=== PATIENT | female | born 1970 | race Caucasian/White ===

== ENCOUNTER → 2021-08-26 09:18 | Outpatient (CLI) | payer OTHER, MEDICAID, SELFPAY ==
[2021-08-26 19:28] LABS: HEMOLYSIS < 15 (0-50); Iron 76 ug/dL (37-170)
[2021-08-26 19:38] LABS: Percent Iron Saturation 20 % (15-50); Total Iron Binding Capacity 377 ug/dL (265-497); Transferrin 319 mg/dL (206-381)
[2021-08-26 19:58] LABS: Ferritin 63 ng/mL (11-264)
== END ==
PROVIDERS: PCP Physician Assistant; Visit Provider Physician Assistant
DX: G43.909 Migraine, unspecified, not intractable, without status migrainosus (principal); D64.9 Anemia, unspecified
CPT/HCPCS: 82728; 83540; 83550

== ENCOUNTER → 2021-08-27 08:08 | Outpatient (CLI) | payer OTHER, MEDICAID, SELFPAY ==
[2021-08-27 19:09] LABS: Alanine Aminotransferase 29 IU/L (<35); Albumin 4.5 g/dL (3.5-5.0); Albumin Globulin Ratio 1.3 (1.0-2.8); Alkaline Phosphatase 70 U/L (38-126); Aspartate Aminotransferase 31 IU/L (14-36); Bilirubin Total 0.5 mg/dL (0.2-1.3); Blood Urea Nitrogen 14 mg/dL (7-17); Calcium 9.3 mg/dL (8.4-10.2); Carbon Dioxide 31 mmol/L (22-32); Chloride 104 mmol/L (98-107); Cholesterol 242 mg/dL (140-199); Estimated Glomerular Filt Rate > 60.0 mL/min (>60); Globulin 3.5 g/dL (1.7-4.1); Glucose 113 mg/dL (70-100); HDL Cholesterol 66 mg/dL (40-60); HEMOLYSIS < 15 (0-50); LDL Cholesterol Calculated 134 mg/dL (<100); Potassium 4.4 mmol/L (3.4-5.1); Sodium 137 mmol/L (137-145); Triglycerides 212 mg/dL (35-150)
[2021-08-27 19:21] LABS: Add Manual Diff / Slide Review NO; Basophils Absolute Auto 100 /uL (0-100); Basophils Percent Auto 1.1 % (0-2); Eosinophils Absolute Auto 200 /uL (0-450); Eosinophils Percent Auto 3.8 % (2-4); Hematocrit 42.4 % (36-46); Hemoglobin 14.1 g/dL (12.0-16.0); Lymphocytes Absolute Auto 1800 /uL (1100-4500); Lymphocytes Percent Auto 28.9 % (25-40); Mean Corpuscular HGB Conc 33.2 % (30-36); Mean Corpuscular Hemoglobin 30.1 PG (26-34); Mean Corpuscular Volume 90.4 fL (80-100); Monocytes Absolute Auto 400 /uL (0-900); Monocytes Percent Auto 6.9 % (3-14); Neutrophils Absolute Auto 3800 /uL (1500-7000); Neutrophils Percent Auto 59.3 % (50-75); Platelet Count 427 X10^3/uL (150-400); Red Blood Cell Count 4.69 X10^6/uL (4.0-5.2); Red Cell Distribution Width 13.6 % (11.6-14.8); White Blood Cell Count 6.4 X10^3/uL (4.5-11.0)
[2021-08-27 19:32] LABS: TSH w/ Reflex to FT4 0.99 uIU/mL (0.47-4.68)
== END ==
PROVIDERS: PCP Physician Assistant; Visit Provider Physician Assistant
DX: E78.00 Pure hypercholesterolemia, unspecified (principal); R63.5 Abnormal weight gain; N95.0 Postmenopausal bleeding
CPT/HCPCS: 80053; 80061; 84443; 85025

== ENCOUNTER → 2021-10-12 08:48 | Outpatient (CLI) | payer OTHER, MEDICAID, SELFPAY ==
--- NOTE | 2021-10-12 08:51 | DI.MG.S_ITS ---
BILATERAL DIGITAL SCREENING MAMMOGRAM 3D/2D WITH CAD: 10/12/2021 CLINICAL: Routine screening. Family history of breast cancer. Comparison is made to exams dated: 03/11/2020 mammogram and 03/13/2019 mammogram - outside location. The tissue of both breasts is heterogeneously dense. This may lower the sensitivity of mammography. Current study was also evaluated with a Computer Aided Detection (CAD) system. There is a new 0.8 cm oval equal density focal asymmetry in the left breast at 10 o'clock middle depth. No other significant masses, calcifications, or other findings are seen in either breast. IMPRESSION: INCOMPLETE: NEEDS ADDITIONAL IMAGING EVALUATION The new 0.8 cm oval equal density focal asymmetry in the left breast resembles a cyst or a lymph node and is indeterminate. Additional views with possible ultrasound are recommended. This exam was interpreted at Station ID: [id number]. NOTE: For mammograms, a report in lay terms will be sent to the patient. Approximately 15% of breast malignancies will not be visualized mammographically. In the management of a palpable breast mass, a negative mammogram must not discourage biopsy of a clinically suspicious lesion. Electronically Signed By: Tristan Hidalgo M.D. aty/:10/12/2021 11:13:13 letter sent: Additional Imaging Needed ACR BI-RADS Category 0: Incomplete 3340F
--- NOTE | 2021-10-12 08:51 | DI.US.S_ITS ---
PROCEDURE: US PELVIC COMPLETE INDICATIONS: abnormal vaginal bleeding TECHNIQUE: Real-time scanning was performed of the pelvic organs, with image documentation. Additional endovaginal scanning was necessary due to incomplete visualization of the adnexal and endometrial structures by transabdominal scanning. COMPARISON: None. FINDINGS: Uterus: Uterus is anteverted and measures 6.1 x 2.7 x 3.4 cm. The endometrium approximately 0.2 cm. There is an ill-defined hypoechoic region adjacent to the endometrium measuring approximately 0.9 x 0.7 x 0.7 cm which may represent a small fibroid. There is a small nabothian cyst as well as a small amount of endocervical fluid. Ovaries: The right ovary measures 2.5 x 1.1 x 1.8 cm. The left ovary measures 2.2 x 0.8 x 0.9 cm. The ovaries have a normal sonographic appearance. Less than 12 follicles can be seen in each ovary. No adnexal masses are seen. Other: No pathologic free abdominal or pelvic fluid. IMPRESSION: 1. Ill-defined hypoechoic oval region adjacent to the endometrium is nonspecific and the differential includes a small fibroid or adenomyosis. If clinical concern persists, consider further evaluation with a pelvic MRI. We strive to produce accurate, complete, and clear reports of imaging services. To assist us in improving patient care, this report was composed using standard report templates and voice recognition software. Therefore, it may contain abnormal punctuation, insertions and/or omissions. Occasional wrong-word or sound-alike substitutions may occur. Though we review the report and make efforts to correct it, we do recommend that the report be read carefully in proper context to recognize any text inaccuracies. Dictated by: Terrell Vicente M.D. on 10/12/2021 at 16:48 Approved by: Terrell Vicente M.D. on 10/12/2021 at 16:53
== END ==
PROVIDERS: PCP Physician Assistant; Referring Provider Physician Assistant; Visit Provider Physician Assistant
DX: N95.0 Postmenopausal bleeding (principal); N84.1 Polyp of cervix uteri; Z12.31 Encounter for screening mammogram for malignant neoplasm of breast; Z80.3 Family history of malignant neoplasm of breast
CPT/HCPCS: 76830; 76856; 77063; 77067

== ENCOUNTER 2021-12-07 12:24 | Day surgery (SDC) | payer OTHER, MEDICAID, SELFPAY ==
[2021-12-03 13:40] VITALS: BMI 31.1
[2021-12-07] VITALS (7 sets, daily range): BP systolic 128–165; BP diastolic 84–108; PULSE 68–85; RESP 15–22; TEMP 36.2–36.9; O2SAT 97–99; BMI 31.1
--- NOTE | 2021-12-07 | PATH_ITS ---
[facility] Accession Number: [id number] . 01 Material submitted: . endometrium - ENDOMETRIAL . 01 Diagnosis: Endometrial: Portions of disordered proliferative endometrial tissue with patchy features of breakdown and shedding; negative for glandular hyperplasia, cytologic atypia, or malignancy. Fragments of endocervical polyp; negative for glandular dysplasia or malignancy. Background pleomorphic calcifications and acellular amorphous foreign body material, nonspecific. MRV 12/10/2021 1332 Local . 01 Electronically signed: . Merly Vargas MD, Pathologist NPI- [id number] . 01 Gross description: . ENDOMETRIAL: Received in formalin are minute fragments of mucoid and hemorrhagic material measuring 1.8 x 1.0 x 0.2 cm in aggregate. Submitted in toto in 1 cassette. /CPE 12/08/2021 0525 Local . 01 Pathologist provided ICD-10: N95.0 . 01 CPT . 670545 Specimen Comment: A courtesy copy of this report has been sent to [phone] Performed at: 01 [facility] [address] [place] [address], [place], [place] [id number] MD Terrell Muhammad MD Phone: [phone]
--- NOTE | 2021-12-07 12:20 | SUR.PREOP ---
pt chart stated 12noon arrival. patient called at 12:20pm to verify patient is coming for procedure. Pt on way in. Stated her expected time was to be here at 1230pm.
[2021-12-07] MEDS: LACTATED RINGERS 1,000 ML 84 ML IV (12:57)
--- NOTE | 2021-12-07 13:07 | PM.PREOP ---
Pre-operative Note COVID-19 COVID-19 status: Negative Result date/Date tested (Pos, Neg/Pending): 12/07/21 Criteria for continued procedure: Expected advancement of disease process Interval Note History & Physical reviewed/Exam performed by Physician: Yes Changes to H&P: No
--- NOTE | 2021-12-07 14:15 | PM.OP.1 ---
Operative Date/Time/Diagnoses Date of procedure: 12/07/21 Time of procedure: 14:15 Pre-op diagnosis: Abnormal uterine bleeding Post-op diagnosis: same Procedure & Clinicians Procedure: Hysteroscopy with resection of endometrial and endocervical polyp with endometrial curettage Same procedure as scheduled: Yes Indications: Abnormal uterine bleeding Surgeon: Sarah Cortes Click Yes if Unassisted: Yes Anesthesia Type: General Operative Notes Findings: Endometrial and endocervical polyp otherwise normal exam under anesthesia and endometrial lining otherwise thin Closure Type: not applicable Specimen(s): other (Endometrial biopsies including the cervical polyp, endometrial polyp, and endometrial curettage) Estimated Blood Loss (mL): 1 Blood products transfused: none Procedure in detail: The patient was brought to the operating room where she underwent general anesthesia. She was placed in low stirrups She was prepped and draped in usual sterile fashion with pulsatile stockings in place and functional, warming in place, no antibiotics were indicated. A single-tooth tenaculum was placed on the anterior lip of the cervix and the uterus dilated to #8 Hegar dilator. The hysteroscope was placed into the uterus with a sorbitol solution running and under constant suction. The resecting loop set at 80 W of cutting was used to resect the endocervical and endometrial polyps down to the level of the endometrium. A endometrial curettage was performed. The polyps and the endometrial curettage were sent to pathology. The patient went to recovery room in good condition. Counts of instruments and sponges were correct. The sorbitol solution I=O approximately 1500 mL. Complications: none Post-operative Condition: stable Disposition: same day surgery Plan for aftercare: Home when awake and stable
--- NOTE | 2021-12-07 14:20 | SUR.OPER ---
Lithotomy on padded OR bed, head on pillow, arms secured on padded arm boards at <90 degrees abduction. Legs secured in padded yellow fins stirrups.
[2021-12-07] MEDS: fentaNYL 100 MCG/2 ML INJ IV (14:35)
[2021-12-07] MEDS: OXYCODONE IR 5 MG TABLET PO (14:58)
--- NOTE | 2021-12-07 15:41 | SUR.PHASEII ---
12/07/[id number]-Cpscdlkr patient, wide awake and alert, no complaints of pain or nausea. Taking snack at present. States doing fine. new peripad placed in pacu. cande henderson obtained and faxed. 1515-home care instructions completed with patient . Stressed that anesthesia wanted her to go for sleep study, information starred/highlighted on instructions. Questions answered on home care. copies at bedside for patient. pain down 3/10. 1525-Vss. oob to restroom to use/dress. new peripad given. scant serrosanganous drainage on prior pad. 1535-iv out. Ride here. Discharged home to friend, Angeline's, car and care with all belongings, instructions and ramilay pass. pain down to 2/10. States much better.
== END 2021-12-07 15:35 | disposition home or self-care (01) ==
PROVIDERS: PCP Physician Assistant; Referring Provider Specialist; Visit Provider Specialist
PROC: 0UDB8ZZ Extraction of Endometrium, Via Natural or Artificial Opening Endoscopic (ICD-10-PCS; CPT 58558; principal; 2021-12-07 13:30)
DX: N84.1 Polyp of cervix uteri (principal); Z20.822 Contact with and (suspected) exposure to COVID-19; N93.9 Abnormal uterine and vaginal bleeding, unspecified
CPT/HCPCS: 58558; 81025; 87635; J1100; J1885; J2250; J2405; J2704; J3010

== ENCOUNTER → 2021-12-07 | Outpatient (CLI) | payer OTHER, MEDICAID, SELFPAY ==
[2021-12-07 11:32] LABS: COVID19 -Nasal RAPID Negative (Negative)
== END ==
PROVIDERS: PCP Physician Assistant; Visit Provider Specialist
DX: Z20.822 Contact with and (suspected) exposure to COVID-19 (principal)
CPT/HCPCS: 87635

== ENCOUNTER → 2021-12-16 11:42 | Outpatient (CLI) | payer OTHER, MEDICAID, SELFPAY ==
--- NOTE | 2021-12-16 | DI.MG.S_ITS ---
UNILATERAL LEFT DIGITAL DIAGNOSTIC MAMMOGRAM 3D/2D WITH ADDITIONAL VIEWS: 12/16/2021 CLINICAL: Additional evaluation requested from prior study. Comparison is made to exams dated: 10/12/2021 mammogram - [facility], 03/11/2020 mammogram, and 03/13/2019 mammogram - outside location. The tissue of left breast is heterogeneously dense. This may lower the sensitivity of mammography. There is a stable 0.8 cm oval equal density focal asymmetry in the left breast at 10 o'clock middle depth. This is seen in additional views. No other significant masses or calcifications are seen in the breast. IMPRESSION: INCOMPLETE: NEEDS ADDITIONAL IMAGING EVALUATION The stable 0.8 cm oval equal density focal asymmetry in the left breast resembles a cyst or a lymph node and is indeterminate. An ultrasound is recommended. US will be performed and dictated separately. Based on the Tyrer Cuzick model (a risk assessment model) the patient's lifetime risk is 13.8% and her 10 year risk is 3.4%. According to the ACR, ACS, and NCCN guidelines, an annual breast MRI exam along with mammogram is recommended if the patient's lifetime risk is 20% or greater. This exam was interpreted at Station ID: [id number]. NOTE: For mammograms, a report in lay terms will be sent to the patient. Approximately 15% of breast malignancies will not be visualized mammographically. In the management of a palpable breast mass, a negative mammogram must not discourage biopsy of a clinically suspicious lesion. Electronically Signed By: Rony Dumont acr/:12/16/2021 13:07:07 ACR BI-RADS Category 0: Incomplete 3340F
--- NOTE | 2021-12-16 11:44 | DI.US.S_ITS ---
LIMITED ULTRASOUND OF LEFT BREAST: 12/16/2021 CLINICAL: Patient returns today to evaluate a focal asymmetry in the left breast. No prior exams were available for comparison. Real-time ultrasound of the left breast 8-10 o'clock region was performed. Powers scale images of the real-time examination were reviewed. No abnormality which corresponds with the mammographic abnormality is seen. IMPRESSION: PROBABLY BENIGN There is no abnormality seen in the left breast to correspond with the mammography finding which likely represents normal fibroglandular tissue. A follow-up mammogram in 6 months is recommended to demonstrate stability. This exam was interpreted at Station ID: [id number]. Electronically Signed By: Rony Dumont acr/:12/16/2021 13:10:07 letter sent: Followup Recommended Ultrasound BI-RADS: 3 Probably benign
== END ==
PROVIDERS: PCP Physician Assistant; Referring Provider Physician Assistant; Visit Provider Physician Assistant
DX: R92.8 Other abnormal and inconclusive findings on diagnostic imaging of breast (principal); N63.24 Unspecified lump in the left breast, lower inner quadrant
CPT/HCPCS: 76642; 77065; G0279

== ENCOUNTER → 2022-03-17 10:44 | Outpatient (CLI) | payer OTHER, MEDICAID, SELFPAY ==
[2022-03-17 20:34] LABS: Cholesterol 236 mg/dL (140-199); HDL Cholesterol 64 mg/dL (40-60); LDL Cholesterol Calculated 124 mg/dL (<100); Triglycerides 241 mg/dL (35-150)
== END ==
PROVIDERS: PCP Physician Assistant; Visit Provider Physician Assistant
DX: E78.5 Hyperlipidemia, unspecified (principal)
CPT/HCPCS: 80061

== ENCOUNTER → 2022-06-25 09:36 | Outpatient (CLI) | payer OTHER, MEDICAID, SELFPAY ==
--- NOTE | 2022-06-25 09:37 | DI.MG.S_ITS ---
UNILATERAL LEFT DIGITAL DIAGNOSTIC MAMMOGRAM 3D/2D: 06/25/2022 CLINICAL: Short term follow up for the left breast. Comparison is made to exams dated: 12/16/2021 ultrasound, 12/16/2021 mammogram, and 10/12/2021 mammogram - [facility]. The left breast is heterogeneously dense, which may obscure small masses (category c / 51-75% glandular tissue). There is a 0.8 cm oval equal density focal asymmetry in the left breast at 10 o'clock middle depth. This is not significantly changed and was not seen on the prior ultrasound. No other significant masses or calcifications are seen in the breast. IMPRESSION: PROBABLY BENIGN The 0.8 cm oval equal density focal asymmetry in the left breast resembles a cyst or a lymph node and is probably benign. A follow-up bilateral mammogram in 6 months is recommended to demonstrate stability. Based on the Tyrer Cuzick model (a risk assessment model) the patient's lifetime risk is 13.7% and her 10 year risk is 3.6%. According to the ACR, ACS, and NCCN guidelines, an annual breast MRI exam along with mammogram is recommended if the patient's lifetime risk is 20% or greater. Findings and recommendations were conveyed to the patient during today's evaluation. This exam was interpreted at Station ID: [id number]. NOTE: For mammograms, a report in lay terms will be sent to the patient. Approximately 15% of breast malignancies will not be visualized mammographically. In the management of a palpable breast mass, a negative mammogram must not discourage biopsy of a clinically suspicious lesion. Electronically Signed By: Tristan Hidalgo M.D. at/:06/25/2022 14:16:12 letter sent: Followup Recommended ACR BI-RADS Category 3: Probably benign 3343F
== END ==
PROVIDERS: PCP Physician Assistant; Referring Provider Physician Assistant; Visit Provider Physician Assistant
DX: N64.89 Other specified disorders of breast (principal); R92.8 Other abnormal and inconclusive findings on diagnostic imaging of breast
CPT/HCPCS: 77065; G0279

== ENCOUNTER → 2022-07-21 09:00 | Outpatient (CLI) | payer OTHER, MEDICAID, SELFPAY ==
[2022-07-21 19:43] LABS: Add Manual Diff / Slide Review NO; Basophils Absolute Auto 0 /uL (0-100); Basophils Percent Auto 0.8 % (0-2); Eosinophils Absolute Auto 200 /uL (0-450); Eosinophils Percent Auto 3.9 % (2-4); Hematocrit 42.1 % (36-46); Hemoglobin 14.3 g/dL (12.0-16.0); Lymphocytes Absolute Auto 2100 /uL (1100-4500); Lymphocytes Percent Auto 36.8 % (25-40); Mean Corpuscular HGB Conc 33.8 % (30-36); Mean Corpuscular Hemoglobin 30.7 PG (26-34); Mean Corpuscular Volume 90.9 fL (80-100); Monocytes Absolute Auto 500 /uL (0-900); Monocytes Percent Auto 9.1 % (3-14); Neutrophils Absolute Auto 2800 /uL (1500-7000); Neutrophils Percent Auto 49.4 % (50-75); Platelet Count 389 X10^3/uL (150-400); Red Blood Cell Count 4.63 X10^6/uL (4.0-5.2); Red Cell Distribution Width 13.1 % (11.6-14.8); White Blood Cell Count 5.6 X10^3/uL (4.5-11.0)
[2022-07-21 20:20] LABS: Cholesterol 282 mg/dL (140-199); HDL Cholesterol 80 mg/dL (40-60); LDL Cholesterol Calculated 129 mg/dL (<100); Triglycerides 363 mg/dL (35-150)
== END ==
PROVIDERS: PCP Physician Assistant; Visit Provider Physician Assistant
DX: E78.5 Hyperlipidemia, unspecified (principal)
CPT/HCPCS: 80061; 85025

== ENCOUNTER → 2022-11-26 17:01 | Outpatient (CLI) | payer OTHER, SELFPAY ==
--- NOTE | 2022-11-26 17:02 | DI.US.S_ITS ---
PROCEDURE: US PELVIC COMPLETE INDICATIONS: HEAVY BLEEDING X 3 DAYS IN OCTOBER 2022 AFTER NO MENSES FOR SIX MONTHS. ?POSTMENOPAUSAL. TECHNIQUE: Real-time scanning was performed of the pelvic organs, with image documentation. Additional endovaginal scanning was necessary due to incomplete visualization of the adnexal and endometrial structures by transabdominal scanning. COMPARISON: Merged With [facility], US, US PELVIC COMPLETE, 10/12/2021, 13:10. FINDINGS: Uterus: Uterus is anteverted and normal in size at 6.9 x 3.7 x 2.7 cm. The myometrium is homogeneous. The endometrium measures 1.7 mm combined thickness. Again noted is a 7 x 7 x 9 mm hypoechoic structure within the endometrium. Ovaries: The right ovary measures 2.6 x 1.1 x 1.0 cm, with a calculated ovarian volume of 1.5 cc. The left ovary measures 2.4 x 1.1 x 1.4 cm, with a calculated ovarian volume of 1 point cc. The ovaries have a normal sonographic appearance. Less than 12 follicles can be seen in each ovary. No adnexal masses are seen. Other: No pathologic free abdominal or pelvic fluid. IMPRESSION: 1. A 7 x 7 x 9 mm hypoechoic structure within the endometrium, probably a small endometrial cyst. Consider nonurgent saline infusion sonohysterogram or gynecological MRI for follow-up evaluation. 2. Unremarkable ovaries. We strive to produce accurate, complete, and clear reports of imaging services. To assist us in improving patient care, this report was composed using standard report templates and voice recognition software. Therefore, it may contain abnormal punctuation, insertions and/or omissions. Occasional wrong-word or sound-alike substitutions may occur. Though we review the report and make efforts to correct it, we do recommend that the report be read carefully in proper context to recognize any text inaccuracies. Dictated by: Albania Green M.D. on 11/26/2022 at 18:20 Approved by: Albania Green M.D. on 11/26/2022 at 18:23
== END ==
PROVIDERS: PCP Physician Assistant; Referring Provider Physician Assistant; Visit Provider Physician Assistant
DX: N95.0 Postmenopausal bleeding (principal); Z98.890 Other specified postprocedural states
CPT/HCPCS: 76830; 76856

== ENCOUNTER → 2022-11-29 09:04 | Outpatient (CLI) | payer OTHER, SELFPAY ==
[2022-11-29 19:48] LABS: Alanine Aminotransferase 33 IU/L (<35); Albumin 4.1 g/dL (3.5-5.0); Albumin Globulin Ratio 1.2 (1.0-2.8); Alkaline Phosphatase 68 U/L (38-126); Aspartate Aminotransferase 32 IU/L (14-36); BUN Creatinine Ratio 15.5 (6-22); Bilirubin Total 0.6 mg/dL (0.2-1.3); Blood Urea Nitrogen 9 mg/dL (7-17); Carbon Dioxide 29 mmol/L (22-32); Chloride 100 mmol/L (98-107); Cholesterol 196 mg/dL (140-199); Estimated Glomerular Filt Rate > 60 mL/min (>60); Globulin 3.3 g/dL (1.7-4.1); Glucose 117 mg/dL (70-100); HDL Cholesterol 84 mg/dL (40-60); HEMOLYSIS < 15 (0-50); LDL Cholesterol Calculated 90 mg/dL (<100); Potassium 4.1 mmol/L (3.4-5.1); Sodium 135 mmol/L (137-145); Total Protein 7.4 g/dL (6.3-8.2); Triglycerides 111 mg/dL (35-150)
[2022-11-29 19:53] LABS: Basophils Absolute Auto 0 /uL (0-100); Basophils Percent Auto 0.4 % (0-2); Eosinophils Absolute Auto 200 /uL (0-450); Eosinophils Percent Auto 3.6 % (2-4); Hematocrit 39.6 % (36-46); Hemoglobin 13.5 g/dL (12.0-16.0); Lymphocytes Absolute Auto 2300 /uL (1100-4500); Lymphocytes Percent Auto 42.9 % (25-40); Mean Corpuscular Hemoglobin 30.9 PG (26-34); Mean Corpuscular Volume 90.9 fL (80-100); Monocytes Absolute Auto 400 /uL (0-900); Monocytes Percent Auto 7.3 % (3-14); Neutrophils Absolute Auto 2500 /uL (1500-7000); Neutrophils Percent Auto 45.8 % (50-75); Platelet Count 288 X10^3/uL (150-400); Red Blood Cell Count 4.35 X10^6/uL (4.0-5.2); Red Cell Distribution Width 13.3 % (11.6-14.8); White Blood Cell Count 5.4 X10^3/uL (4.5-11.0)
[2022-11-29 19:54] LABS: Add Manual Diff / Slide Review SLIDE REVIEW
[2022-11-29 20:32] LABS: RBC Morphology Normal Morphology
== END ==
PROVIDERS: PCP Physician Assistant; Visit Provider Physician Assistant
DX: E78.5 Hyperlipidemia, unspecified (principal); N95.0 Postmenopausal bleeding
CPT/HCPCS: 80053; 80061; 85025

== ENCOUNTER → 2022-12-24 09:05 | Outpatient (CLI) | payer OTHER, SELFPAY ==
--- NOTE | 2022-12-24 09:06 | DI.MG.S_ITS ---
BILATERAL DIGITAL DIAGNOSTIC MAMMOGRAM 3D/2D: 12/24/2022 CLINICAL: Short term follow up of the left breast, due for bilateral imaging. Comparison is made to exams dated: 06/25/2022 mammogram, 12/16/2021 mammogram, 10/12/2021 mammogram - [facility], 03/11/2020 mammogram, and 03/13/2019 mammogram - outside location. Both breasts are heterogeneously dense, which may obscure small masses (category c / 51-75% glandular tissue). There is a stable equal density focal asymmetry in the left breast at 10 o'clock middle depth. This was not seen on the prior ultrasound. No other significant masses, calcifications, or other findings are seen in either breast. IMPRESSION: PROBABLY BENIGN The stable equal density focal asymmetry in the left breast is probably benign. This most likely represents fibroglandular tissue. A follow-up mammogram in 12 months is recommended to demonstrate long-term stability. Based on the Tyrer Cuzick model (a risk assessment model) the patient's lifetime risk is 13.7% and her 10 year risk is 3.6%. According to the ACR, ACS, and NCCN guidelines, an annual breast MRI exam along with mammogram is recommended if the patient's lifetime risk is 20% or greater. This exam was interpreted at Station ID: [id number]. NOTE: For mammograms, a report in lay terms will be sent to the patient. Approximately 15% of breast malignancies will not be visualized mammographically. In the management of a palpable breast mass, a negative mammogram must not discourage biopsy of a clinically suspicious lesion. Electronically Signed By: Darrius Hernandez M.D. [place]/:12/24/2022 09:39:43 letter sent: Followup Recommended ACR BI-RADS Category 3: Probably benign 3343F
== END ==
PROVIDERS: PCP Physician Assistant; Referring Provider Physician Assistant; Visit Provider Physician Assistant
DX: R92.8 Other abnormal and inconclusive findings on diagnostic imaging of breast (principal); N63.20 Unspecified lump in the left breast, unspecified quadrant
CPT/HCPCS: 77066; G0279

== ENCOUNTER → 2024-06-07 10:44 | Outpatient (CLI) | payer OTHER, SELFPAY ==
--- NOTE | 2024-06-07 10:45 | DI.MG.S_ITS ---
BILATERAL DIGITAL DIAGNOSTIC MAMMOGRAM 3D/2D: 06/07/2024 CLINICAL: Patient returns for a 12 month follow up of the left breast, due for bilateral exam. Comparison is made to exams dated: 12/24/2022 mammogram, 10/12/2021 mammogram - , 03/11/2020 mammogram - outside location, 06/25/2022 mammogram, and 12/16/2021 mammogram - . The breasts are heterogeneously dense, which may obscure small masses (category c / 51-75% glandular tissue). There is a stable equal density focal asymmetry in the left breast at 10 o'clock middle depth, stable since 12/16/2021. This was not seen on the prior ultrasound. No other significant masses, calcifications, or other findings are seen in either breast. IMPRESSION: BENIGN Left breast focal asymmetry at 10 o'clock middle depth, stable since November 2021. This finding has demonstrated over two years of stability and is consistent with a benign process. No mammographic or sonographic evidence of malignancy. A 1 year screening mammogram is recommended. Findings and recommendations were conveyed to the patient during today's evaluation. Based on the Tyrer Cuzick model (a risk assessment model) the patient's lifetime risk is 13.4% and her 10 year risk is 3.9%. According to the ACR, ACS, and NCCN guidelines, an annual breast MRI exam along with mammogram is recommended if the patient's lifetime risk is 20% or greater. This exam was interpreted at Station ID: [id number]. NOTE: For mammograms, a report in lay terms will be sent to the patient. Approximately 15% of breast malignancies will not be visualized mammographically. In the management of a palpable breast mass, a negative mammogram must not discourage biopsy of a clinically suspicious lesion. Electronically Signed By: Layla Bansal M.D., Ph.D. eb/:06/07/2024 13:20:23 letter sent: Normal Exam ACR BI-RADS Category 2: Benign
== END ==
LOC: MAMMO 10:45
PROVIDERS: PCP Physician Assistant; Referring Provider Physician Assistant; Visit Provider Physician Assistant
DX: R92.8 Other abnormal and inconclusive findings on diagnostic imaging of breast (principal); R92.333 Mammographic heterogeneous density, bilateral breasts; N64.89 Other specified disorders of breast
CPT/HCPCS: 77066; G0279